=== PATIENT | female | born 1965 | race African-American/Black ===

== ENCOUNTER 2016-06-24 13:30 | Emergency (ER) | payer OTHER ==
[~2016-06-24] VITALS: Ht 162.6 cm; Wt 69.0 kg
[2016-06-24 13:30] VITALS: BP 147/107
[~2016-06-24 13:30] MED LIST: AC325T PO; ALBU8.5H4 IH; AML5T PO; BLOO1EAC87 MC; CHOL100092 PO; CLIN-79 PO; FLUT1DIS3 IH; IBUP200C PO; INSU100I10 SC; INSU100I14 SQ; INSU100I23 SC; LANTUS SOL100 UNIT/1 SC; LSRT50T PO; OMEP20TA PO; ONDA4TAB11 PO; OXYC1TAB12 PO; OXYC1TAB87 PO; PANT40TA3 PO; SMV20T PO; SUCR1TAB29 PO; TESTSTRIPS MC; [UNRECOGNIZED DRUG - CODE] MC; [UNRECOGNIZED DRUG - CODE] MC
--- OUTSIDE RECORDS SUMMARY | 2016-06-24 13:36 | XMS REPORT | Continuity of Care Document ---
Author Author [facility] Organization [facility] Address Unknown Phone Unavailable Care Team Providers Care Learning Program Manager Name Role Phone Bo Badillo PCP [phone] Source Comments Some departments are not documenting in the electronic medical record. If you do not see the information that you expected, contact Release of Information in the Health Information Management department at [phone] for further assistance in locating additional records.[facility] Active Allergies and Adverse Reactions Allergen Noted Date Severity Reactions Comments Penicillins 04/13/2015 Medium RASH Sulfa (Sulfonamide 04/13/2015 Medium RASH, EDEMA Antibiotics) Tuberculin Ppd 04/13/2015 Medium EDEMA Current Medications Prescription Sig. Disp. Refills Start End Date Status Date fluticasone-salmeterol Inhale 1 Puff by mouth Active (ADVAIR DISKUS) 250-50 every 12 hours. mcg inhalation disk albuterol-ipratropium Inhale 3 mL solution as Active (DUONEB) 0.5 mg-3 mg(2.5 directed every 6 hours as mg base)/3 mL nebulizer needed for Wheezing. solution losartan (COZAAR) 50 mg Take 50 mg by mouth Active tablet daily. insulin aspart (NOVOLOG) Inject 3 Units into Active 100 unit/mL flexPEN area(s) as directed three times daily with meals. simvastatin (ZOCOR) 20 mg Take 20 mg by mouth at Active tablet bedtime daily. latanoprost (XALATAN) Apply 1 Drop to both eyes Active 0.005 % ophthalmic at bedtime daily. solution alum/mag hydroxide/simeth Take 30 mL by mouth three 354 mL 4 05/05/ Active (MYLANTA, MAALOX PLUS) times daily with meals. 15 200/200/20 mg/5 mL susp oral suspension polyethylene glycol 3350 Take 17 g by mouth daily. 1 Bottle 4 Active (GLYCOLAX; MIRALAX) 17 15 gram/dose powder senna/docusate Take 2 Tabs by mouth 120 Tab 3 05/05/20 Active (SENOKOT-S) 8.6/50 mg twice daily. [address] Take 1 Tab by mouth twice 60 Tab 5 05/05/20 Active (PROTONIX) 40 mg tablet daily. 15 insulin glargine (LANTUS Inject 20 Units into 3 box 3 05/05/20 Active SOLOSTAR) 100 unit/mL (3 area(s) as directed at 15 mL) injection PEN bedtime daily. ondansetron (ZOFRAN ( Take 1 Tab by mouth every 20 Tab 0 05/05/20 Active HYDROCHLORIDE)) 4 mg 8 hours as needed for 15 tablet Nausea. metoclopramide HCl Take 1 Tab by mouth 120 Tab 3 05/25/20 Active (REGLAN) 10 mg tablet before meals and at 15 bedtime. oxyCODONE (ROXICODONE) 5 Take 1-2 Tabs by mouth 60 Tab 0 06/07/20 Active mg tablet every 4 hours as needed 15 for Pain Earliest Fill Date: 06/07/15 Active Problems Problem Noted Date Acute blood loss anemia 05/04/2015 Overview: 05/01/15: Hgb 6.8. Transfused 1U PRBCs GERD (gastroesophageal reflux disease) 05/04/2015 Overview: MEDICAL SAFETY DIRECTOR: Protonix 40mg QD 04/26/15: Protonix daily started 04/27/15: Increased Protonix IV to BID 05/04/15: Protonix 40mg BID changed from IV to PO. Start Maalox with meals. S/P exploratory laparotomy 04/26/2015 Overview: 04/25/15: exploratory laparotomy, pancreaticoduodenectomy, cholecystectomy, pancreaticojejunostomy over 5Fr stent, hepaticojejunostomy, gastrojejunostomy Essential hypertension 04/26/2015 Overview: MEDICAL SAFETY DIRECTOR: Cozaar 50mg, Norvasc 5mg 05/02/15: Increased Norvasc to 10mg QD Type 2 diabetes mellitus without complication (HCC) 04/26/2015 Overview: MEDICAL SAFETY DIRECTOR: Lantus 20u qhs, Novolog 3u with meals COPD (chronic obstructive pulmonary disease) (HCC) 04/26/2015 Overview: MEDICAL SAFETY DIRECTOR: Marivel Aguilera HLD (hyperlipidemia) 04/26/2015 Overview: MEDICAL SAFETY DIRECTOR: Zocor 20mg qhs Pancreatic mass 04/25/2015 Tobacco use disorder Immunizations Name Dates Previously Given Next Due Pneumococcal Vaccine 04/25/2015 (23-Briana Adult) Social History Tobacco Use Types Packs/Day Years Used Date Current Every Day Smoker Cigarettes 1 30 Smokeless Tobacco: Never Used Alcohol Use Drinks/Week oz/Week Comments Yes 21 Cans of 21.0 3 beers & 2 shots sean/day. beer 14 Shots of liquor Last Filed Vital Signs Vital Sign Reading Time Taken Blood Pressure 174/86 11/17/2015 2:23 PM CDT Pulse 79 11/17/2015 2:23 PM CDT Temperature 36.5 C (97.7 F) 11/17/2015 1:48 PM CDT Respiratory Rate - - Height 1.524 m (5') 11/17/2015 11:15 AM CDT Weight 56.7 kg (125 lb) 11/17/2015 11:15 AM CDT Body Mass Index 24.41 11/17/2015 11:15 AM CDT Oxygen Saturation 98% 11/17/2015 2:23 PM CDT Plan of Care Health Maintenance Due Date Last Done Comments Physical (Comprehensive) 1974 Exam Pertussis Vaccine 1978 Tetanus Vaccine 1984 Cervical Cancer Screening 1988 Breast Cancer Screening 2007 Influenza Vaccine 02/22/2016 Results from Last 3 Months Not on file
[2016-06-24] MEDS ORDERED: ALBUTEROL 0.083% NEB SOLUTION 2.5 MG/3 ML VIAL INH ONE (13:50)
[2016-06-24 14:05] LABS: MEAN CORPUSCULAR HGB CONC 32.6 g/dL (31.0-37.0); MEAN PLATELET VOLUME 9.9 FL (6.0-9.5); PLATELET COUNT 189 10^3uL (150-450); WHITE BLOOD COUNT 5.31 10^3uL (4.0-11.0)
[2016-06-24 14:14] LABS: MEAN CORPUSCULAR HEMOGLOBIN 25.9 PG (26.0-34.0); MEAN CORPUSCULAR VOLUME 79 FL (80-100)
[2016-06-24 14:21] LABS: ALBUMIN 4.3 g/dL (3.4-5.0); ANION GAP 14.2 MEQ/L (3-15); CALCULATED IONIZED CALCIUM 3.9 mg/dL (3.8-4.6); TOTAL PROTEIN 7.1 g/dL (6.4-8.5)
[2016-06-24 14:22] LABS: BAND NEUTROPHILS % 0 % (0-6); EOSINOPHILS % 1 % (0-4); LYMPHOCYTES # 2.9 #; MONOCYTES # 0.3 #; MONOCYTES % 6 % (3-11); SEGMENTED NEUTROPHILS % 38 % (51-67); TOTAL CELLS COUNTED 100
[2016-06-24 14:23] LABS: RBC MORPH NORMAL (NORMAL)
--- NOTE | 2016-06-24 14:54 | Diagnostic Imaging Report ---
INDICATION: Emphysema and chest pain. PA and lateral views of the chest are obtained with comparison made to study of 12/19/2015. Heart size and pulmonary vascularity are within normal limits. There is no pneumothorax or consolidation. There is no significant pleural fluid. Air trapping is stable, bilaterally. IMPRESSION: Emphysema has remained stable. No acute abnormalities detected. Dictated by: Dictated on workstation # [id number]
[2016-06-24] MEDS ORDERED: AZITHROMYCIN 250 MG TAB (ZITHROMAX) PO ONE (15:05)
[2016-06-24] MEDS ORDERED: predniSONE 20 MG (DELTASONE) TABLET PO ONE (15:05)
[2016-06-24] MEDS ORDERED: PRED20TA PO (15:06)
[2016-06-24] MEDS ORDERED: AZIT250T5 PO (15:06)
== END 2016-06-24 15:42 | disposition home or self-care (01) ==
LOC: EDUNIT# 13:30 → ED 13:32
DX: J44.1 Chronic obstructive pulmonary disease with (acute) exacerbation (principal)
CPT/HCPCS: 36415; 71020; 80053; 85025; 86140; 94640; 99282; J7613; 99283